=== PATIENT | male | born 1960 | race Caucasian/White ===

== ENCOUNTER 2018-12-20 22:47 | Inpatient (IN) | payer MEDICARE ==
--- NOTE | 2018-12-20 23:40 | RAD ---
AP view chest preoperative chest radiograph. AP view chest is obtained. Cardiomegaly seen. Calcination of the aorta seen. The lungs are well aerated. No evidence of acute in trathoracic abnormalities noted. IMPRESSION: Cardiomegaly.
[2018-12-20 23:46] LABS: INR-International Normal Ratio 1.1; PTT 37.6 SEC (22.9-36.1); Prothrombin Time 14.6 SEC (12.0-14.7)
[2018-12-20 23:54] LABS: Amphetamine Not Detected (NotDetected); Benzodiazepine Screen Detected (NotDetected); Cocaine Metabolite Screen Not Detected (NotDetected); Medtox Reader # READER 1; Methamphetamine Not Detected (NotDetected); Opiate Screen Not Detected (NotDetected); Phencyclidine (PCP) Not Detected (NotDetected); THC/Cannabinoid Screen Not Detected (NotDetected)
[2018-12-20 23:55] LABS: Barbiturates Screen Not Detected (NotDetected); Medtox Control Line Valid? VALID (VALID); Methadone Not Detected (NotDetected); Oxycodone Screen Not Detected (NotDetected); Tricyclic Screen Not Detected (NotDetected)
[2018-12-21 00:01] LABS: Acetaminophen Less than 6.0 mcg/mL (10.0-30.0); Alcohol Less than 10 mg/dL (Less than 10); Salicylate Less than 8.0 mg/dL (15.0-30.0)
[2018-12-21] MEDS ORDERED: hydrALAZINE 20 MG/ML VIAL ONE (00:19)
[2018-12-21] MEDS ORDERED: traMADol HCl 50 MG TAB PO PRN ×2 (01:35)
[2018-12-21] MEDS ORDERED: Dextrose 50% Abboject 50 ML SYRINGE SLOW IVP PRN (01:35)
[2018-12-21] MEDS ORDERED: Cyclobenzaprine 10 MG TAB PO PRN (01:35)
[2018-12-21] MEDS ORDERED: Dextrose 5% in Water 1,000 ML IV PRN (01:35)
[2018-12-21] MEDS ORDERED: Morphine 2 MG/ML SYRINGE SLOW IVP PRN (01:35)
[2018-12-21] MEDS ORDERED: Promethazine HCl 25 MG/ML VIAL IM PRN ×2 (01:35→12:18)
[2018-12-21] MEDS ORDERED: Ondansetron PF 4 MG/2 ML Vial IVP PRN (01:35)
[2018-12-21 01:46] VITALS: BMI 21.6
[2018-12-21] MEDS ORDERED: Sodium Chloride 0.9% 1,000 ML IV SCH (02:00)
[2018-12-21] MEDS: Acetaminophen 500 MG TAB PO SCH ×4 (02:30→20:54)
[2018-12-21 04:37] LABS: #Eosinphils 0.2 thou/uL (0.0-0.7); #Lymphocytes 1.4 thou/uL (1.20-3.40); #Neutrophils 7.3 thou/uL (1.40-6.50); %Basophils 0.3 % (0.0-1.0); %Eosinophils 2.3 % (0.0-10.0); %Lymphocytes 13.7 % (21.0-51.0); %Monocytes 10.3 % (0.0-10.0); %Neutrophils 73.5 % (42.0-75.0); Hemoglobin 17.7 g/dL (14.0-18.0); Mean Corpuscular HGB CONC 34.9 g/dL (32.0-36.0); Mean Corpuscular Hemoglobin 36.1 pg (27.0-31.0); Mean Platelet Volume 8.3 fL (7.4-10.4); Platelet Count 142 thou/uL (130-400); RBC Distribution Width 13.1 % (11.5-14.5)
[2018-12-21 04:55] LABS: Anion Gap 10 mmol/L (10-20); BUN (Urea Nitrogen) 11 mg/dL (8.4-25.7); Calc. Creatinine Clearance 121 mL/min (70-130); Calcium 8.5 mg/dL (7.8-10.44); Carbon Dioxide 25 mmol/L (22-29); Chloride 102 mmol/L (98-107); Estimated GFR-MDRD Greater than 90; Glucose 96 mg/dL (70-105); Magnesium 1.8 mg/dL (1.6-2.6); Phosphorus 2.5 mg/dL (2.3-4.7); Potassium 3.3 mmol/L (3.5-5.1); Sodium 134 mmol/L (136-145)
[2018-12-21] MEDS: Ibuprofen 600 MG TAB PO SCH ×3 (05:43→20:56)
[2018-12-21] MEDS: hydrALAZINE 20 MG/ML VIAL SLOW IVP PRN (05:43)
[2018-12-21] MEDS: Oxazepam 10 MG CAP PO SCH ×3 (05:43→20:56)
[2018-12-21] MEDS ORDERED: CEFAZOLIN 2 GM in Premix Bag 1 BAG IVPB SCH (07:30)
[2018-12-21] MEDS ORDERED: Labetalol HCl 100 MG/20 ML VIAL SLOW IVP PRN (07:43)
--- NOTE | 2018-12-21 08:15 | CON ---
DATE OF CONSULTATION: CHIEF COMPLAINT: Right hip pain. HISTORY OF PRESENT ILLNESS: Mr. Welch is a 58-year-old male, who fell 3 days ago. He landed on his right hip at home. He was able to just minimally ambulate to his couch. Since then, he has not been able to ambulate. He drinks alcohol daily. He reports walking well prior to his fall, but again since then has been unable to walk because of right hip pain. His hip pain has worsened. He has had severe symptoms. He has had previous hospital visits for falls. The patient is a chronic alcoholic. PAST MEDICAL HISTORY: Alcoholism, hypertension, history of CVA, and history of subarachnoid hemorrhage. SOCIAL HISTORY: The patient smokes cigarettes and drinks beer daily. ALLERGIES: NO KNOWN DRUG ALLERGIES. MEDICATIONS: The patient denies taking active medications. REVIEW OF SYSTEMS: Positive for recent and recurrent falls as well as alcohol abuse. Otherwise, negative 10-point review of systems. FAMILY MEDICAL HISTORY: Noncontributory. PHYSICAL EXAMINATION: VITAL SIGNS: Temperature is 97.5, pulse is 75, respiratory rate 14, and blood pressure is 181/80. GENERAL: He is alert, lying supine, in no apparent distress. RESPIRATORY: Breathing comfortably. ABDOMEN: Soft, nontender, and nondistended. MUSCULOSKELETAL: The patient's right lower extremity has a thin appearance. SKIN: Intact along the proximal thigh and distally. He is able to flex and extend the foot and ankle. Palpable pulses. He has a decubitus ulcer posteriorly at the sacrum. Upper extremities are atraumatic. IMAGING DATA: Right hip x-rays demonstrated displaced right femoral neck fracture. IMPRESSION: Right femoral neck fracture in an alcoholic male. PLAN: I discussed the treatment options with the patient. I think he would best be treated by hemiarthroplasty of the hip to restore the ability to mobilize. I think he would be a very high risk for dislocation with a total hip arthroplasty given his alcoholism. He is at risk for dislocation with his hemiarthroplasty as well, but less so. He is at risk for infection, healing problems, DVT, PE, stroke, and others. He wants to proceed. Goal will be to provide the ability for early mobilization. He will have appropriate DVT prophylaxis and antibiotic prophylaxis. Job ID: [id number]
[2018-12-21] MEDS: Polyethylene Glycol 3350 17 GM Packet PO SCH (09:11)
[2018-12-21] MEDS: Senokot S 8.6-50 MG TAB PO SCH ×2 (09:11→20:56)
[2018-12-21] MEDS: Famotidine 20 MG TAB PO SCH ×2 (09:11→20:55)
[2018-12-21] MEDS ORDERED: Fentanyl 100 MCG/2 ML VIAL ONE (11:05)
[2018-12-21] MEDS ORDERED: Famotidine/PF 20 mg/2ml Vial ONE (11:06)
[2018-12-21] MEDS ORDERED: Meperidine HCl/PF 25 MG/ML VIAL SLOW IVP PRN (12:18)
[2018-12-21] MEDS ORDERED: Ondansetron HCl/PF 4 MG/2 ML Vial IVP PRN (12:18)
[2018-12-21] MEDS ORDERED: Promethazine HCl 25 MG/ML VIAL SLOW IVP PRN (12:18)
[2018-12-21] MEDS: CEFAZOLIN 2 GM in Premix Bag 1 BAG IVPB SCH ×2 (13:37→20:57)
--- NOTE | 2018-12-21 14:48 | RAD ---
Exam: Single view of the pelvis HISTORY: Status post right hip arthroplasty COMPARISON: None FINDINGS: A single view the pelvis shows the patient is status post right hip arthroplasty without pe rihardware lucency or fracture. Overlying skin sondra are from recent surgery. No degenerative changes seen in the left hip. IMPRESSION: Status post right hip arthroplasty without evidence of complication.
--- NOTE | 2018-12-21 14:49 | RAD ---
Exam: Single view of the right hip HISTORY: Status post right hip arthroplasty Findings/impression: The patient is status post right hip arthroplasty without perihardware lucency o r fracture. Overlying skin sondra are from recent surgery.
--- NOTE | 2018-12-21 16:19 | PRG ---
DATE OF SERVICE: 12/21/2018 SUBJECTIVE: The patient was seen this afternoon, sitting up in bed, postop for a right femoral neck fracture. Reported pain was well controlled. Had just voided since postop. He had lunch at the bedside and he was tolerating that well. He had no complaints at the time of my evaluation. He denied nausea, vomiting, and diarrhea. OBJECTIVE: VITAL SIGNS: Temperature 97.6, pulse 90, respirations 16, oxygen 94% on room air, and blood pressure 152/82. GENERAL: Frail-appearing middle-aged male, lying in bed with no signs of acute distress. PULMONARY: Equal chest rise and fall. Clear breath sounds bilaterally. No signs of acute respiratory distress. CARDIAC: Regular rate and rhythm. No murmurs, gallops, or rubs. GI: Abdomen is soft, nontender, and nondistended. EXTREMITIES: 2+ pulses in all extremities. No significant swelling noted. Dressing to right thigh is clean, dry, and intact with no signs of infection. Gross motor and sensation intact in all extremities. NEUROLOGIC: GCS is 15. Pupils equal, round, and reactive to light bilaterally. LABORATORY FINDINGS: White count 10.0, hemoglobin 17.7, hematocrit 50.7, and platelets 142. Sodium 134, potassium 3.3, chloride 102, carbon dioxide 25, BUN 11, creatinine 0.68, glucose 96, phos 2.5, and magnesium 1.8. DIAGNOSTIC FINDINGS: There are no new diagnostic findings to report. ASSESSMENT: 1. Status post fall while intoxicated, delayed presentation. 2. Right femoral neck fracture, status post repair. 3. Hypertension, uncontrolled. 4. History of hypertension, cerebrovascular accident with right-sided weakness and speaking deficit. PLAN: The patient was given a regular diet postoperatively. He will also be given Ensure b.i.d. Continue Serax for alcohol withdrawal symptoms. Restart all home medications. PT/OT to work with the patient. Rehab screen is pending. The patient was discussed with Dr. Johnston this afternoon after rounds. Job ID: [id number]
[2018-12-21] MEDS ORDERED: Metoclopramide HCl 10 MG/2 ML VIAL ONE (16:30)
[2018-12-21] MEDS ORDERED: Glycopyrrolate 0.2 MG/ML 5 ML SYRINGE ONE (16:30)
[2018-12-21] MEDS ORDERED: PROPOFOL 200 MG/20 ML VIAL ONE (16:30)
[2018-12-21] MEDS ORDERED: Ketorolac Tromethamine 30 MG/ML VIAL ONE (16:30)
[2018-12-21] MEDS ORDERED: Rocuronium Bromide 10 MG/ML (10ML VIAL) ONE (16:30)
[2018-12-21] MEDS ORDERED: Lidocaine 1% PF 5 ML VIAL ONE (16:30)
[2018-12-21] MEDS ORDERED: Dexamethasone 20 MG/5 ML VIAL ONE (16:30)
[2018-12-21] MEDS ORDERED: Esmolol 100 MG/10 ML VIAL ONE (16:30)
[2018-12-21] MEDS ORDERED: Ondansetron PF 4 MG/2 ML Vial ONE (16:30)
[2018-12-21] MEDS: FLUoxetine HCl 20 MG CAP PO SCH (16:38)
[2018-12-21] MEDS: Potassium Chloride 10 MEQ TAB PO SCH (16:38)
--- NOTE | 2018-12-21 19:27 | OP ---
DATE OF PROCEDURE: 12/21/2018 PROCEDURE PERFORMED: Right hip hemiarthroplasty. PREOPERATIVE DIAGNOSIS: Right femoral neck fracture. POSTOPERATIVE DIAGNOSIS: Right femoral neck fracture. COMPLICATIONS: None. ESTIMATED BLOOD LOSS: 100 mL. WAREHOUSE GENERAL LABORER: Suzanna iFnch PA-C. IMPLANTS: DePuy Basic press-fit stem size 6, size 28 mm +5 femoral head with a 51 mm bipolar shell. INDICATIONS: Mr. Welch is a 58-year-old male who fell and fractured the femoral neck. He was indicated for hemiarthroplasty of the hip to restore anatomic alignment and promote mobilization. Risks have been reviewed in detail. He elected to proceed with the operation. DESCRIPTION OF PROCEDURE: Mr. Welch was identified in the preoperative holding area. His correct extremity was marked. He was carried to the operating room. He was positioned supine. General anesthesia was induced. A multidisciplinary time-out was performed. The right lower extremity was prepped and draped in sterile fashion. We began the procedure with a posterior approach to the hip. We dissected down through the subcutaneous tissues to the fascia, which was opened. We then subperiosteal divided the short external rotators and capsule from the proximal femur. We removed the broken femoral head. We prepared the femoral neck with an osteotomy. At this point, we prepared the femoral canal using reamers followed by broaching up to a size 6. Size 6 gave a good fit with stable range of motion. At this point, we placed our final femoral stem after trialing. We had a stable hip with a +5 femoral head. The final stem was then impacted appropriately. We thoroughly irrigated with copious lavage. We then closed the deep tissues with #5 Ethibond suture followed by #2 Vicryl suture, and skin closure. A sterile dressing was applied. The patient was taken to the recovery room in good condition without complication. Job ID: [id number]
[2018-12-22] MEDS: Acetaminophen 500 MG TAB PO SCH ×4 (02:11→20:58)
[2018-12-22] MEDS: Ibuprofen 600 MG TAB PO SCH ×3 (05:11→20:59)
[2018-12-22] MEDS: Oxazepam 10 MG CAP PO SCH ×3 (05:11→20:59)
[2018-12-22] MEDS: Levothyroxine Sodium 50 MCG TAB PO SCH (05:11)
[2018-12-22] MEDS ORDERED: Levothyroxine Sodium 50 MCG TAB PO SCH (06:00)
[2018-12-22 06:28] LABS: #Lymphocytes 0.8 thou/uL (1.20-3.40); #Neutrophils 15.8 thou/uL (1.40-6.50); %Eosinophils 0.1 % (0.0-10.0); %Lymphocytes 4.3 % (21.0-51.0); %Monocytes 5.6 % (0.0-10.0); Hemoglobin 15.7 g/dL (14.0-18.0); Mean Corpuscular Hemoglobin 34.5 pg (27.0-31.0); Mean Platelet Volume 8.5 fL (7.4-10.4); Platelet Count 167 thou/uL (130-400); RBC Distribution Width 12.9 % (11.5-14.5); Red Blood Cell (RBC) Count 4.54 mill/uL (4.70-6.10); White Blood Cell (WBC) Count 17.6 thou/uL (4.8-10.8)
[2018-12-22 06:49] LABS: Anion Gap 10 mmol/L (10-20); BUN (Urea Nitrogen) 15 mg/dL (8.4-25.7); Calc. Creatinine Clearance 121 mL/min (70-130); Calcium 8.9 mg/dL (7.8-10.44); Carbon Dioxide 26 mmol/L (22-29); Chloride 100 mmol/L (98-107); Estimated GFR-MDRD Greater than 90; Glucose 138 mg/dL (70-105); Phosphorus 2.9 mg/dL (2.3-4.7); Sodium 132 mmol/L (136-145)
[2018-12-22] MEDS ORDERED: Sodium Phosphate 15 MMOL in Sodium Chloride 0.9% 250 ML 250 ML IVPB SCH (08:15)
[2018-12-22] MEDS: Senokot S 8.6-50 MG TAB PO SCH ×2 (09:06→20:59)
[2018-12-22] MEDS: FLUoxetine HCl 20 MG CAP PO SCH (09:07)
[2018-12-22] MEDS: Potassium Chloride 10 MEQ TAB PO SCH (09:07)
[2018-12-22] MEDS: Famotidine 20 MG TAB PO SCH ×2 (09:07→20:59)
[2018-12-22] MEDS: Polyethylene Glycol 3350 17 GM Packet PO SCH (09:07)
[2018-12-22] MEDS: hydrALAZINE 20 MG/ML VIAL SLOW IVP PRN (09:20)
--- NOTE | 2018-12-22 15:51 | PRG ---
DATE OF SERVICE: 12/22/2018 SUBJECTIVE: The patient was seen this morning, lying in bed with no signs of acute distress. Reports pain is well controlled, voiding without difficulties, and working with Physical and Occupational Therapy and was previously ambulating. OBJECTIVE: VITAL SIGNS: Temperature 97.6, pulse 73, respirations 16, oxygen saturation 96% on room air, blood pressure 126/79. GENERAL: Frail-appearing, middle-aged male, lying in bed with no signs of acute distress. PULMONARY: Equal chest rise and fall, clear breath sounds bilaterally. No signs of acute respiratory distress. CARDIAC: Regular rate and rhythm. No murmurs, gallops, or rubs. GI: Abdomen is soft, nontender, nondistended. EXTREMITIES: 2+ pulses in all extremities. No significant swelling noted. Dressing over right thigh is clean, dry, and in place with no signs of infection. Gross motor and sensation are intact. NEUROLOGIC: GCS 15. Pupils equal, round, and reactive to light. LABORATORY FINDINGS: White count 17.6, hemoglobin 15.7, hematocrit 47.4, platelets 167. Sodium 132, potassium 4.0, chloride 100, carbon dioxide 26, BUN 15, creatinine 0.68, glucose 138, phosphorus 2.9, magnesium 2.0. DIAGNOSTIC FINDINGS: There are no new diagnostic findings to report. ASSESSMENT: 1. Status post fall while intoxicated, delayed presentation. 2. Right femoral neck fracture, status post repair. 3. Hypertension, better controlled today. 4. History of hypertension, CVA with right-sided weakness and speaking difficulty, alcohol abuse, and hyperlipidemia. The patient will continue to work with Physical and Occupational Therapy. All home medications have been restarted. Continue Serax. The patient is pending placement in acute rehab facility. The patient was discussed with Dr. Johnston this morning after rounds. Job ID: [id number]
[2018-12-22] MEDS: Aspirin 81 mg Enteric Coated Tablet PO SCH (20:58)
[2018-12-23] MEDS: Acetaminophen 500 MG TAB PO SCH ×4 (02:12→20:58)
[2018-12-23] MEDS: Ibuprofen 600 MG TAB PO SCH ×3 (05:50→20:57)
[2018-12-23] MEDS: Oxazepam 10 MG CAP PO SCH ×3 (05:50→20:58)
[2018-12-23] MEDS: Levothyroxine Sodium 50 MCG TAB PO SCH (05:50)
[2018-12-23 06:50] LABS: Anion Gap 12 mmol/L (10-20); BUN (Urea Nitrogen) 11 mg/dL (8.4-25.7); Calc. Creatinine Clearance 122 mL/min (70-130); Calcium 8.5 mg/dL (7.8-10.44); Carbon Dioxide 26 mmol/L (22-29); Chloride 102 mmol/L (98-107); Estimated GFR-MDRD Greater than 90; Glucose 98 mg/dL (70-105); Magnesium 1.8 mg/dL (1.6-2.6); Potassium 3.6 mmol/L (3.5-5.1); Sodium 136 mmol/L (136-145)
[2018-12-23 07:22] LABS: #Eosinphils 0.1 thou/uL (0.0-0.7); #Lymphocytes 1.2 thou/uL (1.20-3.40); #Neutrophils 10.6 thou/uL (1.40-6.50); %Eosinophils 0.6 % (0.0-10.0); %Lymphocytes 9.6 % (21.0-51.0); %Monocytes 7.7 % (0.0-10.0); %Neutrophils 82.1 % (42.0-75.0); Hemoglobin 15.1 g/dL (14.0-18.0); MDiff Complete? YES; Macrocytosis SLIGHT = 6-15 cells (100X) (0-5/hpf); Mean Corpuscular HGB CONC 33.6 g/dL (32.0-36.0); Mean Corpuscular Hemoglobin 35.4 pg (27.0-31.0); Mean Platelet Volume 8.2 fL (7.4-10.4); Platelet Count 174 thou/uL (130-400); Red Blood Cell (RBC) Count 4.26 mill/uL (4.70-6.10); White Blood Cell (WBC) Count 12.9 thou/uL (4.8-10.8)
[2018-12-23] MEDS: Famotidine 20 MG TAB PO SCH ×2 (08:44→20:57)
[2018-12-23] MEDS: Senokot S 8.6-50 MG TAB PO SCH ×2 (08:44→20:57)
[2018-12-23] MEDS: Potassium Chloride 10 MEQ TAB PO SCH (08:44)
[2018-12-23] MEDS: Aspirin 81 mg Enteric Coated Tablet PO SCH ×2 (08:44→20:58)
[2018-12-23] MEDS: FLUoxetine HCl 20 MG CAP PO SCH (08:44)
[2018-12-23] MEDS: Polyethylene Glycol 3350 17 GM Packet PO SCH (08:44)
[2018-12-23] MEDS: Folic Acid 1 MG TAB PO SCH (08:58)
[2018-12-23] MEDS: Thiamine 100 MG TAB PO SCH (08:58)
--- NOTE | 2018-12-23 13:25 | HP ---
TRAUMA SURGEON: Dr. Wood. CONSULTING PHYSICIAN: Dr. Garcia. HISTORY OF PRESENT ILLNESS: The patient is a 58-year-old male, who presented to the emergency department at outside facility due to having right-sided hip pain. CT of the head and right hip were completed, which demonstrated a right femoral neck fracture. He was transferred here for orthopedic services. The patient reports that he noticed right hip pain three days ago. He states he believes he fell while intoxicated and laid on the couch for couple of days waiting for the pain to resolve. He decided to come to the emergency department tonight because the pain did not improve. He did not have much to eat or drink over the past couple of days due to being stuck on the couch. He denies numbness or tingling. Denies nausea, vomiting, or diarrhea. Denies neck or back pain. GCS is 15. He does have a history of a CVA with right-sided deficits as well as difficulty speaking. This is unchanged from previously. REVIEW OF SYSTEMS: All additional 10-point review of systems negative except as indicated above. PAST MEDICAL HISTORY: The patient is a poor historian, but reports he has hypertension, hyperlipidemia, CVA several years ago with right-sided weakness and difficulty speaking. PAST SURGICAL HISTORY: None. SOCIAL HISTORY: The patient reports smoking a pack of cigarettes per day. Drinks 5 to 6 beers daily. Has a remote history of marijuana use. ALLERGIES: NO KNOWN DRUG ALLERGIES. PHYSICAL EXAMINATION: VITAL SIGNS: Temperature 98.1, pulse 85, respirations 20, oxygen saturation 94% on room air, and blood pressure 197/100. PRIMARY SURVEY: Airway intact. Adequate breath sounds bilaterally. 2+ pulses in the bilateral radials, femorals, and DPs. GCS is 15. Gross motor and sensation intact. No lacerations, bruising, or external bleeding. SECONDARY SURVEY: Normocephalic, atraumatic. No gross palpable skull deformities or tenderness. PUPILS: 3 to 2, equal, round, reactive bilaterally. ENT: No hemotympanum. No epistaxis. No septal hematoma. Midface stable to manipulation. No blood in the oropharynx. Dentition is intact. No anterior neck injury/crepitus/tenderness. C-SPINE: No step-offs or deformities. Nontender. C-collar not in place. CHEST: Nontender. No crepitus. No abrasions or ecchymosis noted. Equal chest movement. ABDOMEN: Soft, nontender, nondistended. PELVIS: Stable to palpation. Nontender. No abrasions or ecchymosis noted. RECTAL: Deferred. GENITOURINARY: Deferred. EXTREMITIES: Right lower extremity shortened and externally rotated. No abrasions or ecchymosis noted. 2+ pulses in bilateral radials, femorals, and DPs bilaterally. BACK/SPINE: No step-offs or deformities or tenderness to palpation of the thoracic or lumbar spine. No abrasions or ecchymosis noted. NEUROLOGIC: 5/5 strength in the bilateral vice president quality assurance, plantar flexion, and dorsiflexion. Gross normal sensation x4 extremities. LABORATORY FINDINGS: White count 12.0, hemoglobin 20.2, hematocrit 60.1, and platelets 184. INR 1.1. Sodium 130, potassium 3.8, chloride 98, carbon dioxide 25, BUN 15, creatinine 0.83, lactic acid 2.7, glucose 122, and troponin 0.011. UA negative. Toxicology screen positive for benzodiazepine. DIAGNOSTIC FINDINGS: CT of the brain demonstrates no evidence of acute intracranial abnormalities seen. X-ray of the right hip demonstrates displaced right femoral neck fracture. Chest x-ray demonstrates cardiomegaly. ASSESSMENT: 1. Status post mechanical fall while intoxicated. 2. Right femoral neck fracture. 3. Hypertension, uncontrolled. 4. History of daily alcohol use, hypertension, cerebrovascular accident with residual right-sided weakness. The patient also has other medical history, but he is unable to answer questions as he is a poor historian. PLAN: The patient will be admitted to the Trauma Surgical floor. Dr. Garcia of Orthopedic Surgery has been consulted and will evaluate the patient for operative intervention of the right femoral neck fracture. He will be n.p.o. with normal saline at 75 an hour. He did receive 2 L of crystalloid in the emergency department already. He will receive pain control with scheduled Tylenol, ibuprofen, and p.r.n. tramadol and Flexeril. PT/OT to see the patient postoperatively. We will start gastric ulcer prophylaxis, but hold chemo VTE prophylaxis at this time. He will receive p.r.n. hydralazine for blood pressure control. His daughter in-law is to bring in his home medications tomorrow, and we will restart them as clinically indicated. The patient will also receive Serax q.8 hours to prevent alcohol withdrawal. The patient was discussed with Dr. Wood before this dictation. Job ID: [id number]
--- NOTE | 2018-12-23 13:28 | HP ---
TRAUMA SURGEON: Dr. Wood. CONSULTING PHYSICIAN: Dr. Garcia. HISTORY OF PRESENT ILLNESS: The patient presents to the emergency department with right hip pain. The patient had a mechanical fall 3 days before presentation. He was intoxicated at the time. He laid on the couch for multiple days waiting for the pain to go away and when it did not he came in to the emergency department. He is noncompliant with his medications and only takes it when he has them available. He also has not eaten or drink anything for several days. He denies nausea, vomiting, diarrhea. Denies numbness or tingling. Reports pain is well controlled. REVIEW OF SYSTEMS: All additional 10-point review of systems negative except as indicated above. PAST MEDICAL HISTORY: The patient is a poor historian, but reports hypertension, hyperlipidemia, CVA with residual right-sided weakness and difficulty with speech. MEDICATIONS: The patient is noncompliant, but takes medication for hypertension and hyperlipidemia. He does not know the name or the dosages of the medications. PAST SURGICAL HISTORY: None. SOCIAL HISTORY: The patient drinks 5 to 6 beers a day. Smokes 1 pack of cigarette per day. Has a previous history of marijuana use. ALLERGIES: NO KNOWN DRUG ALLERGIES. PHYSICAL EXAMINATION: VITAL SIGNS: Temperature 98.8, pulse 84, respirations 18, oxygen saturation 96% on room air, blood pressure 170/78. PRIMARY SURVEY: Airway intact. Adequate breath sounds bilaterally. 2+ pulses in all extremities. GCS is 15. Gross motor and sensation intact. No bruises, lacerations, or signs of bleeding. SECONDARY SURVEY: Head: Normocephalic and atraumatic with no signs of trauma. HEENT: No hemotympanum. No epistaxis. No septal hematoma. Midface stable. No manipulation. No blood in the oropharynx. Dentition is intact. C-SPINE: C-collar not in place. No step-offs or deformities. Nontender. CHEST: Equal chest rise and fall. Clear breath sounds bilaterally. No signs of acute chest trauma. GI: Abdomen is soft, nontender, nondistended. PELVIS: Stable to palpation with some right-sided lateral pain. RECTAL: Deferred. GENITOURINARY: Deferred. EXTREMITIES: 2+ pulses in all extremities. No significant swelling noted. Right lower extremity mildly shortened with some right-sided lateral hip pain. 2+ pulses in all extremities. NEUROLOGIC: GCS is 15. Pupils equal, round, reactive to light bilaterally. Gross motor and sensation intact in all extremities. LABORATORY FINDINGS: White count 12, hemoglobin 20.2, hematocrit 60.1, and platelets 184. INR 1.0, sodium 130, potassium 3.8, chloride 92, carbon dioxide 25, BUN 15, creatinine 0.83, glucose 122. Lactic acid 2.7. UA negative. DIAGNOSTIC FINDINGS: Chest x-ray demonstrates cardiomegaly. CT of the brain demonstrates no evidence of acute intracranial process. X-ray of the hip demonstrates left femoral neck fracture. ASSESSMENT: 1. Status post mechanical fall, delayed presentation. 2. Right femoral neck fracture. 3. History of alcohol abuse. 4. Hypertension. 5. Hyperlipidemia. 6. Previous CVA with right-sided weakness and speech deficit. PLAN: The patient will be admitted to the surgical floor and will go to the OR with Dr. Garcia of Orthopedic Surgery. He will be n.p.o., receive normal saline via IV. He already received 1 L bolus in the emergency department. Postop, he will receive Physical and Occupational Therapy. In the meantime, we will provide pain control. We will hold VTE prophylaxis at this time. The patient was seen and examined by myself and discussed with Dr. Wood. Job ID: [id number]
[2018-12-24] MEDS: hydrALAZINE 20 MG/ML VIAL SLOW IVP PRN (00:07)
[2018-12-24] MEDS: Acetaminophen 500 MG TAB PO SCH ×4 (02:22→21:06)
--- NOTE | 2018-12-24 02:42 | PRG ---
DATE OF SERVICE: 12/23/2018 This is Chantel Mauricio NP dictating a report for Sundeep Johnston DO. SUBJECTIVE: This is a 58-year-old gentleman postop day #2, right femoral neck fracture status post fall. The patient had no the patient had no overnight events. The patient continues to work with Physical and Occupational Therapy. OBJECTIVE: VITAL SIGNS: Temperature 97.7, pulse 70, respirations 16, SpO2 of 98% on room air, blood pressure 160/76. GENERAL: The patient awake, alert, in no distress. PULMONARY: Equal chest rise and fall, no rest respiratory distress. CARDIAC: Regular rate and rhythm, no pedal edema. GI: Abdomen is soft, nontender, nondistended. EXTREMITIES: 2+ pulses in all extremities. Dressing over right thigh, clean, dry, and intact. NEUROLOGIC: GCS 15. No focal deficits. LABORATORY DATA: WBC 12.9, RBC 4.26, hemoglobin 15.1, hematocrit 44.9, platelets 174. Sodium 136, potassium 3.6, chloride 102, BUN 11, creatinine 0.67, estimated GFR greater than 90, glucose 98, calcium 8.5, phosphorus 3.0, and magnesium 1.8. DIAGNOSTICS: There are no diagnostics to review today. IMPRESSION: 1. Status post fall while intoxicated with delayed presentation. 2. Right femoral neck fracture, status post operative day #2. 3. History of hypertension. 4. Cerebrovascular accident, right-sided weakness and speaking difficulty. 5. Alcohol abuse. 6. Hyperlipidemia. PLAN: The patient will continue to work with Physical and Occupational Therapy. We will continue Serax as patient is a daily drinker. The patient is pending placement for inpatient rehab. The plan was discussed with the patient who agrees. The patient was examined with Dr. Johnston during morning rounds. Job ID: [id number]
[2018-12-24] MEDS: Ibuprofen 600 MG TAB PO SCH ×3 (05:30→21:06)
[2018-12-24] MEDS: Levothyroxine Sodium 50 MCG TAB PO SCH (05:31)
[2018-12-24] MEDS: Oxazepam 10 MG CAP PO SCH ×3 (05:31→21:06)
[2018-12-24] MEDS: Polyethylene Glycol 3350 17 GM Packet PO SCH (08:52)
[2018-12-24] MEDS: Senokot S 8.6-50 MG TAB PO SCH ×2 (08:52→21:07)
[2018-12-24] MEDS: Famotidine 20 MG TAB PO SCH ×2 (08:53→21:06)
[2018-12-24] MEDS: Folic Acid 1 MG TAB PO SCH (08:53)
[2018-12-24] MEDS: Thiamine 100 MG TAB PO SCH (08:53)
[2018-12-24] MEDS: Potassium Chloride 10 MEQ TAB PO SCH (08:54)
[2018-12-24] MEDS: FLUoxetine HCl 20 MG CAP PO SCH (08:54)
[2018-12-24] MEDS: Aspirin 81 mg Enteric Coated Tablet PO SCH ×2 (08:54→21:07)
[2018-12-25] MEDS: Acetaminophen 500 MG TAB PO SCH ×4 (02:19→19:38)
[2018-12-25] MEDS: Levothyroxine Sodium 50 MCG TAB PO SCH (05:44)
[2018-12-25] MEDS: Oxazepam 10 MG CAP PO SCH ×3 (05:44→19:39)
[2018-12-25] MEDS: Ibuprofen 600 MG TAB PO SCH ×3 (05:44→19:39)
[2018-12-25] MEDS: FLUoxetine HCl 20 MG CAP PO SCH (08:12)
[2018-12-25] MEDS: Senokot S 8.6-50 MG TAB PO SCH ×2 (08:12→19:39)
[2018-12-25] MEDS: Aspirin 81 mg Enteric Coated Tablet PO SCH ×2 (08:12→19:38)
[2018-12-25] MEDS: Thiamine 100 MG TAB PO SCH (08:13)
[2018-12-25] MEDS: Folic Acid 1 MG TAB PO SCH (08:13)
[2018-12-25] MEDS: Potassium Chloride 10 MEQ TAB PO SCH (08:13)
[2018-12-25] MEDS: Famotidine 20 MG TAB PO SCH ×2 (08:13→19:38)
[2018-12-25] MEDS: Polyethylene Glycol 3350 17 GM Packet PO SCH (08:14)
--- NOTE | 2018-12-25 10:21 | PRG ---
DATE OF SERVICE: 12/24/2018 The patient was seen with Dr. Sundeep Johnston on morning rounds. SUBJECTIVE: Mr. Welch is a 58-year-old male, who is postop day #3, status post right femoral neck fracture from a delayed fall. No events overnight. The patient is working with PT and OT. They recommend inpatient rehab for his safety. The patient lives alone. He does want to go home, but he is willing to work with PT /OT a little longer. OBJECTIVE: VITAL SIGNS: Today, blood pressure is 147/64, heart rate is 76, temperature is 97.7. He is breathing 12 times a minute, saturating 98%. GENERAL: This is a 58-year-old male, sitting up in bed, in no acute distress. HEENT: Normocephalic and atraumatic. Trachea is midline. No JVD is appreciated. RESPIRATORY: Equal rise and fall. Bilateral breath sounds. Clear to auscultation in upper and lower bilaterally. CARDIOVASCULAR: Regular rate and rhythm. No murmur. ABDOMEN: Soft and nontender. PELVIS: Slight tenderness in the right. MUSCULOSKELETAL: There is a surgical scar to the right hip. Moves extremities well. Strong pulses. SKIN: [place], warm and dry. NEURO: Alert and oriented to person, place, time, and event. PSYCH: Normal mood and affect. LABORATORY DATA: There is no laboratory data from today to review. IMPRESSION: 1. Right femoral neck fracture status post open reduction and internal fixation postoperative day #3. 2. Acute intoxication leading to a fall and #1 above. 3. History of hypertension. 4. History of cerebrovascular accident with right-sided weakness and sequelae with dysphagia. 5. Hyperlipidemia and hypothyroidism. PLAN: 1. Encourage to continue to work with PT, OT. I have discussed the case with case management, they are putting in a rehab referral. They are requesting a swing bed. Continue all supportive care including Synthroid, folate, thiamine, antihypertensives, and serax. 2. Continue pain control. 3. The patient was seen by Dr. Johnston this morning, and I have confirmed with the case management. Job ID: [id number] MTDD
--- NOTE | 2018-12-25 16:07 | PRG ---
DATE OF SERVICE: 12/25/2018 The patient was seen with Dr. Sundeep Johnston. SUBJECTIVE: Mr. Welch is a 58-year-old male, postoperative day 4 status post right femoral neck fracture, who is pending placement in a swing bed. He remains to be pain controlled. He is ambulating with PT. He has no events overnight, and he is hemodynamically stable. OBJECTIVE: Today, VITAL SIGNS: Temperature is 98.0, blood pressure 172/81, heart rate is 76, respiratory rate is 16, saturating 98%. GENERAL: This is a 58-year-old male, sitting up in bed, in no acute distress. He is bearded. HEENT: Normocephalic and atraumatic. NECK: Trachea is midline. No JVD is appreciated. RESPIRATORY: No respiratory distress. Normal rate and rhythm. CARDIOVASCULAR: Strong pulses. Regular rate and rhythm. ABDOMEN: Soft. MUSCULOSKELETAL: He is able to move all of his extremities. NEUROLOGIC: Alert and oriented to person, place, time, and event. PSYCHIATRIC: Normal mood and affect. SKIN: [place], warm, and dry. LABORATORY DATA: There are no laboratory data from today. ASSESSMENT: 1. Right femoral neck fracture, status post open reduction and internal fixation, postoperative day #4. 2. Acute intoxication leading to fall and #1 above, resolving. 3. History of hypertension, ongoing. 4. History of cerebrovascular accident with right-sided sequelae of weakness and dysphagia. 5. Hyperlipidemia and hypothyroidism. PLAN: 1. Encourage the patient to continue to work with PT and OT if he does desire to go home. However, he lives alone; therefore, swing bed would be the best, and he has been agreeable to same. 2. Continue pain regimen. 3. Continue Serax for fear of withdrawals. 4. Continue home Synthroid dosing. 5. We will adjust blood pressure medicines to better maintain and confirm that there are p.r.n.'s as needed. 6. Diet. Regular diet. 7. Prophylaxis would be thiamine, folate, aspirin b.i.d., and Pepcid. 8. Activity, up with assistance. 9. Full code. 10. Access of peripheral IVs. 11. Disposition is surgery [place] until he is cleared for a swing bed. Job ID: [id number]
[2018-12-26] MEDS: Acetaminophen 500 MG TAB PO SCH ×4 (01:10→19:47)
[2018-12-26] MEDS: Oxazepam 10 MG CAP PO SCH ×3 (05:21→19:46)
[2018-12-26] MEDS: Levothyroxine Sodium 50 MCG TAB PO SCH (05:21)
[2018-12-26] MEDS: Ibuprofen 600 MG TAB PO SCH ×3 (05:21→19:46)
[2018-12-26] MEDS: Aspirin 81 mg Enteric Coated Tablet PO SCH ×2 (08:28→19:46)
[2018-12-26] MEDS: Famotidine 20 MG TAB PO SCH ×2 (08:28→19:47)
[2018-12-26] MEDS: Senokot S 8.6-50 MG TAB PO SCH ×2 (08:28→19:47)
[2018-12-26] MEDS: Folic Acid 1 MG TAB PO SCH (08:29)
[2018-12-26] MEDS: FLUoxetine HCl 20 MG CAP PO SCH (08:29)
[2018-12-26] MEDS: Polyethylene Glycol 3350 17 GM Packet PO SCH (08:30)
[2018-12-26] MEDS: Thiamine 100 MG TAB PO SCH (08:30)
[2018-12-26] MEDS: Potassium Chloride 10 MEQ TAB PO SCH (08:30)
[2018-12-26] MEDS ORDERED: Lisinopril 10 MG TAB PO SCH ×2 (09:00→14:00)
--- NOTE | 2018-12-26 09:50 | PRG ---
DATE OF SERVICE: 12/26/2018 SUBJECTIVE: Chagn is a 58-year-old male, who is postop day 5 from a right hip hemiarthroplasty. He is ambulating approximately 500 feet independently with standby assist and ADLs appear to be better. I believe the manager case management spoke with family regarding placement and I think they are leaning towards assisted living. The patient's daughter is concerned that he can no longer live alone. OBJECTIVE: VITAL SIGNS: On exam, temperature 97.8; pulse 54; blood pressure is 158/72; respiratory rate 16, unlabored; and O2 saturation 98% on room air. GENERAL: He is alert, oriented, responsive and appropriate with examiner. ABDOMEN: His incision is clean. No shortening. No malrotation is noted. LABORATORY DATA: Hemoglobin and hematocrit of 15 and 44, doing well. IMPRESSION: A 58-year-old male, postop day 5, right hip hemiarthroplasty secondary to fracture. TREATMENT PLAN: Continue current care. Depending on discharge, we will range for staple removal. Job ID: [id number]
--- NOTE | 2018-12-26 17:04 | PRG ---
DATE OF SERVICE: 12/26/2018 SUBJECTIVE: The patient was seen this morning lying in bed. Reported pain was well controlled. No acute issues overnight. Tolerating a regular diet, has Ensure b.i.d. Working with Physical and Occupational Therapy. Denies nausea, vomiting, and diarrhea. OBJECTIVE: VITAL SIGNS: Temperature 97.8, pulse 63, respirations 18, oxygen saturation 98% on room air, blood pressure 167/77. GENERAL: Frail, middle-aged male, lying in bed with no signs of acute distress. PULMONARY: Equal chest rise and fall, clear breath sounds bilaterally. No signs of acute respiratory distress. CARDIAC: Regular rate and rhythm. No murmurs, gallops, or rubs. GI: Abdomen is soft, nontender, nondistended. EXTREMITIES: 2+ pulses in all extremities. No significant swelling noted. Neuro: GCS is 15. Gross motor and sensation is intact. Pupils equal, round, reactive to light bilaterally. LABORATORY FINDINGS: There are no new laboratory findings to discuss. DIAGNOSTIC FINDINGS: There are no new diagnostic findings to discuss. ASSESSMENT: 1. Status post fall with delayed presentation. 2. Right femoral neck fracture. 3. Hypertension, uncontrolled. 4. History of hypertension. 5. 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 PLAN: The patient will continue to receive supportive care as well as physical and occupational therapy. We will discontinue b.i.d. metoprolol today and start the patient on lisinopril daily for better blood pressure control. Continue all home medications as well. The patient is ready for discharge to half-way facility at this time and is pending insurance authorization. The patient was seen and examined by Dr. Johnston and myself this morning during rounds. Job ID: [id number]
[2018-12-27] MEDS: Acetaminophen 500 MG TAB PO SCH ×3 (01:00→14:12)
[2018-12-27] MEDS: Oxazepam 10 MG CAP PO SCH ×2 (05:27→14:12)
[2018-12-27] MEDS: Ibuprofen 600 MG TAB PO SCH ×2 (05:27→14:12)
[2018-12-27] MEDS: Levothyroxine Sodium 50 MCG TAB PO SCH (05:27)
[2018-12-27] MEDS: Senokot S 8.6-50 MG TAB PO SCH (08:14)
[2018-12-27] MEDS: Potassium Chloride 10 MEQ TAB PO SCH (08:14)
[2018-12-27] MEDS: Thiamine 100 MG TAB PO SCH (08:15)
[2018-12-27] MEDS: Famotidine 20 MG TAB PO SCH (08:15)
[2018-12-27] MEDS: Polyethylene Glycol 3350 17 GM Packet PO SCH (08:15)
[2018-12-27] MEDS: Aspirin 81 mg Enteric Coated Tablet PO SCH (08:15)
[2018-12-27] MEDS: Folic Acid 1 MG TAB PO SCH (08:15)
[2018-12-27] MEDS: FLUoxetine HCl 20 MG CAP PO SCH (08:15)
[2018-12-27] MEDS ORDERED: Lisinopril 10 MG TAB PO SCH (09:00)
[2018-12-27 15:44] VITALS: BP 134/66; TEMP 97.7
--- NOTE | 2018-12-28 05:59 | DIS ---
DATE OF ADMISSION: 12/21/2018 DATE OF DISCHARGE: 12/27/2018 [facility]: Orthopedics, Dr. Garcia. PROCEDURES: On 12/21/2018, CT of the brain demonstrates no evidence of acute intracranial abnormalities seen. X-ray of the right hip demonstrates displaced right femoral neck fracture. Chest x-ray demonstrates cardiomegaly. Pelvis x-ray, status post right hip arthroplasty without evidence of complication. PRIMARY DIAGNOSES: Status post mechanical fall with delayed presentation, right femoral neck fracture. SECONDARY DIAGNOSES: History of alcohol abuse, hypertension, hyperlipidemia, previous cerebrovascular accident with right-sided weakness and speech deficit. DISCHARGE MEDICATIONS: 1. Acetaminophen 1000 mg p.o. q.6 hours. 2. Aspirin 81 mg p.o. b.i.d. 3. Flexeril 5 mg p.o. 3 times a day as needed. 4. Diltiazem 180 mg p.o. daily. 5. Prozac 20 mg p.o. daily. 6. Folic acid 1 mg p.o. daily. 7. Ibuprofen 600 mg p.o. daily. 8. Synthroid 50 mcg p.o. daily. 9. Lisinopril 10 mg p.o. daily. 10. MiraLAX as needed. 11. Potassium 10 mEq p.o. daily. 12. Senna-S as needed. 13. Thiamine 100 mg p.o. daily. 14. Tramadol 50 mg q.6 hours as needed for pain. Discontinued medications, none. HISTORY OF PRESENT ILLNESS AND HOSPITAL COURSE: This is a 58-year-old gentleman who presented to the emergency department with right hip pain status post mechanical fall. The patient presented to the ER 3 days after a fall. The patient was intoxicated at that time. The patient states that he was laid on the couch for multiple days waiting for the pain to go away and when it did not, the patient went to the emergency department. The patient is noncompliant with his medications and only takes it when he has them available. The patient reported not eating or drinking for several days previous. On 12/21/2018, the patient was taken to the OR for right hip hemiarthroplasty by Dr. Garcia. Postoperatively, the patient's pain was well controlled. The patient had a slight extended hospital stay due to pending placement for swing bed. The patient did have issues with hypertension and was placed on lisinopril 10 mg daily for blood pressure control. The patient also had hyponatremia during his hospital course and was placed on a free water restriction and was given Gatorade with improvement. On the day of discharge, the patient's vital signs were stable. The patient's exam was unremarkable including cardiopulmonary and GI exam. The patient was deemed stable for discharge to swing bed for continued care and physical therapy. The plan was discussed with the attending surgeon, who agreed. The patient also agreed with the plan. DISCHARGE INSTRUCTIONS: 1. Location: Swing bed unit. 2. Disposition: Stable. 3. Diet: Regular diet and supplement with Ensure b.i.d. 4. Activity: Posterior hip precautions, orthopedic limitations. 5. Followup: Follow up with Dr. Garcia in 10 days. Follow up with your primary care physician in 2 weeks as the patient was started on new blood pressure medicine, lisinopril. The patient will need followup for further blood pressure evaluation. No need to follow up with the trauma office, Dr. Johnston. Call for any questions. This is just a summary of the patient's hospital course. Job ID: [id number] MTDD
== END 2018-12-27 16:29 | DRG 470 ==
LOC: ERS 22:47 → SURG B 12-21 01:05
PROVIDERS: ADMIT Specialist; ATTEND Specialist
PROC: 0SR90JA Replacement of Right Hip Joint with Synthetic Substitute, Uncemented, Open Approach (ICD-10-PCS; principal; 2018-12-21)
DX: S72.001A Fracture of unspecified part of neck of right femur, initial encounter for closed fracture (principal); I69.351 Hemiplegia and hemiparesis following cerebral infarction affecting right dominant side; W19.XXXA Unspecified fall, initial encounter; Y92.9 Unspecified place or not applicable; I10 Essential (primary) hypertension; E78.5 Hyperlipidemia, unspecified; F17.210 Nicotine dependence, cigarettes, uncomplicated; F10.20 Alcohol dependence, uncomplicated; Z79.899 Other long term (current) drug therapy; I69.320 Aphasia following cerebral infarction
CPT/HCPCS: 36415; 71045; 72170; 80048; 80306; 80307; 82550; 83735; 84100; 85025; 85610; 85730; 86850; 86900; 86901; 96361; 96374; G0390; J0131; J0360; J0690; J1100; J1885; J2001; J2405; J2704; J2765; J3010; J7050; S0028